=== PATIENT | female | born 1995 | race African-American/Black ===

== ENCOUNTER 2019-08-17 13:37 | Emergency (ER) | payer MEDICAID, SELFPAY ==
[2019-08-17 13:38] VITALS: BP 161/84; PULSE 88; RESP 17; TEMP 36.1; O2SAT 99; BMI 34.4
--- NOTE | 2019-08-17 14:24 | ED.DEP ---
ED Disposition - Plan for ED Patient: Instructions: HYPERTENSION, Established Referrals: [facility],Out of [Primary Care Provider] -
--- NOTE | 2019-08-17 14:27 | ED.VISSUMM ---
- ER Visit Summary Date of Service: 08/17/19 Chief Complaint: Elevated blood pressure History of Present Illness: The patient is a 23 F presenting with elevated blood pressure. Patient was at nursing clinical[facility] and had a slight headache. Her blood pressure was checked and it was 190/100. She states this was not the worst headache of her life. She has history of hypertension and takes metoprolol. She denies chest pain or other complaints. Her symptoms have now resolved. On arrival to the ED her blood pressure was 161/84. Physical Examination: Vitals are stable. Patient is afebrile. Alert no acute distress. HEENT exam is unremarkable. Neck is supple. Lungs are clear and equal bilaterally. Heart is regular rate and rhythm. Extremities are unremarkable. Skin is warm and dry. No focal neurologic deficit. Remainder of exam is unremarkable. Emergency Department Course and Treatment: Blood pressure without medication is 128/92. Patient is asymptomatic. She will track her blood pressures at home. She will follow-up with her primary care physician. Advised return to ED if worsening complaints. Disposition: Discharge home Impression: Hypertension This note was generated with [employer] dictation software. It may contain incorrect words, spelling, and punctuation that were not noted in review of the chart prior to signing ED Disposition - Plan for ED Patient: Instructions: HYPERTENSION, Established Referrals: Dev Doctor,Out of [Primary Care Provider] -
== END 2019-08-17 14:42 | disposition home or self-care (01) ==
LOC: ED 14:37
PROVIDERS: Emergency Provider Emergency Medicine
DX: I10 Essential (primary) hypertension (principal); Z79.899 Other long term (current) drug therapy
CPT/HCPCS: 99285